=== PATIENT | male | born 1995 ===

== ENCOUNTER 2021-09-02 23:15 | Emergency (ER) | payer SELFPAY | END 2021-09-03 00:30 | LOC: MW.ED 23:15 | DX: F10.129 Alcohol abuse with intoxication, unspecified (principal) | CPT/HCPCS: 99284 ==

== ENCOUNTER 2022-03-26 18:50 | Emergency (ER) | payer BC ==
[2022-03-26] MEDS ORDERED: Ibuprofen 600 MG Tab PO ONE (19:47)
[2022-03-26 19:56] LABS: CORONAVIRUS COVID-19 NAA NEGATIVE (NEGATIVE); INFLUENZA A NAA NEGATIVE (NEGATIVE); INFLUENZA B NAA NEGATIVE (NEGATIVE); RESPIRATORY SYNCYTIAL VIR NAA NEGATIVE (NEGATIVE)
== END 2022-03-26 20:43 | disposition home or self-care (01) ==
LOC: MW.ED 18:50
DX: B34.9 Viral infection, unspecified (principal); Z20.822 Contact with and (suspected) exposure to COVID-19
CPT/HCPCS: 0241U; 99283; A9270